=== PATIENT | male | born 1990 | race Caucasian/White ===

== ENCOUNTER 2019-07-20 05:09 | Emergency (ER) | payer SELFPAY ==
[~2019-07-20] VITALS: Ht 180.3 cm; Wt 65.8 kg
[2019-07-20 05:09] VITALS: BP_SYST 129
[2019-07-20] MEDS ORDERED: BACITRACIN ZINC 15 GM TOPICAL OINTMENT TP ONE (06:30)
[2019-07-20 06:44] VITALS: BP_SYST 126
[2019-07-20] MEDS ORDERED: BACITRACIN 1 GM OINT TP ONE (06:50)
== END 2019-07-20 06:44 ==
LOC: SED 05:09
DX: S93.401A Sprain of unspecified ligament of right ankle, initial encounter (principal); S93.402A Sprain of unspecified ligament of left ankle, initial encounter; M79.632 Pain in left forearm; V47.5XXA Car driver injured in collision with fixed or stationary object in traffic accident, initial encounter; Y93.89 Activity, other specified; Y92.89 Other specified places as the place of occurrence of the external cause; Y99.8 Other external cause status
CPT/HCPCS: 73590-TC; 99283